=== PATIENT | male | born 1975 | race Hispanic/Latino ===

== ENCOUNTER 2017-06-09 17:40 | Emergency (ER) | payer SELFPAY ==
[~2017-06-09 17:40] MED LIST: ALBU6.7H IH; AZIT500T4 PO; FLUT110HFA IH; MONT10TA24 PO; PRED20TA3 PO
[2017-06-09] MEDS ORDERED: DEXAMETHASONE SOD PHOSPHATE 10MG/ML 1ML VIAL ONE (18:33)
[2017-06-09] MEDS ORDERED: ACETAMINOPHEN EXTRA STRENGTH 500 MG TABLET ONE (18:33)
[2017-06-09 18:36] LABS: RAPID GROUP A STREP NEGATIVE (NEGATIVE)
[2017-06-09] MEDS ORDERED: IPRATROPIUM/ALBUTEROL SULFATE 3 ML SOLUTION IH ONE ×3 (18:39→19:55)
== END 2017-06-09 20:18 | disposition home or self-care (01) ==
LOC: EDH 17:40
DX: J45.41 Moderate persistent asthma with (acute) exacerbation (principal); Z72.0 Tobacco use
CPT/HCPCS: 71046; 87804 ×2; 87880; 94640 ×3; 96372; 99285; J1100

== ENCOUNTER 2020-04-27 15:24 | Emergency (ER) | payer OTHER ==
[~2020-04-27 15:24] MED LIST changes: -ALBU6.7H IH; +ALBU6.7H9 IH; -MONT10TA24 PO; +MONT10TA26 PO
[2020-04-27] MEDS ORDERED: KETOROLAC TROMETHAMINE 30MG/ML ONE (16:09)
[2020-04-27] MEDS ORDERED: ACETAMINOPHEN-CODEINE 300/30MG TAB ONE (16:10)
== END 2020-04-27 16:56 | disposition home or self-care (01) ==
LOC: EDH 15:24
DX: S42.292A Other displaced fracture of upper end of left humerus, initial encounter for closed fracture (principal); J45.909 Unspecified asthma, uncomplicated; Z72.0 Tobacco use; Z98.890 Other specified postprocedural states; V19.3XXA Pedal cyclist (driver) (passenger) injured in unspecified nontraffic accident, initial encounter; Y93.89 Activity, other specified; Y92.89 Other specified places as the place of occurrence of the external cause; Y99.8 Other external cause status
CPT/HCPCS: 29105; 73030; 96372; 99283; J1885